=== PATIENT | female | born 1995 | race Caucasian/White ===

== ENCOUNTER 2016-12-03 22:27 | Emergency (ER) | payer OTHER ==
[2016-12-04 00:40] LABS: UA SPECIFIC GRAVITY 1.015 (1.005-1.035); microscopic required? YES; urine erythrocyte 1+ (NEGATIVE)
[2016-12-04 01:52] VITALS: BP 101/50
== END 2016-12-04 01:52 | disposition home or self-care (01) ==
LOC: ED 22:27
PROVIDERS: Emergency Medicine
DX: O23.42 Unspecified infection of urinary tract in pregnancy, second trimester (principal); Z3A.17 17 weeks gestation of pregnancy
CPT/HCPCS: 87804; J0696

== ENCOUNTER 2017-06-14 15:57 | Inpatient (IN) | payer OTHER ==
[~2017-06-14] VITALS: Ht 160 cm; Wt 88.0 kg
[2017-06-14 16:51] LABS: BASOPHIL % 0.4 % (0-2); PLATELET COUNT 289 x10^3mcL (130-400); RED CELL DISTRIBUTION WIDTH 14.5 % (11.5-14.5)
[2017-06-14 17:01] LABS: CARBON DIOXIDE 29.5 mmol/L (21-32); CHLORIDE SERUM 105 mmol/L (98-107); CREATININE SERUM 0.8 mg/dL (0.6-1.0); GFR1 > 60 mL/min; GLUCOSE SERUM 131 mg/dL (74-106); POTASSIUM SERUM 3.5 mmol/L (3.5-5.1); SODIUM SERUM 141 mmol/L (136-145)
[2017-06-14 17:05] LABS: ALBUMIN 3.7 g/dL (3.4-5.0); ALKALINE PHOSPHATASE 202 U/L (46-116); ALT/SGPT 20 U/L (14-59); AMYLASE 59 U/L (25-115); AST/SGOT 28 U/L (15-37); BILIRUBIN TOTAL 0.59 mg/dL (0.20-1.00); LIPASE 215 IU/L (73-393); TOTAL PROTEIN, SERUM 8.4 g/dL (6.4-8.2)
[2017-06-14 19:28] LABS: PHOSPHOROUS 3.9 mg/dL (2.5-4.9)
[2017-06-14 19:33] VITALS: BP 117/72
[2017-06-14 19:37] LABS: T3 TOTAL 1.21 ng/mL
[2017-06-14 19:39] LABS: FREE T4 0.9 ng/dL (0.76-1.46); FREE THYROXINE INDEX 2.9 ug/dL (1.4-4.5); T4(THYROXINE) 9.6 ug/dL (4.7-13.3)
[2017-06-15 05:17] VITALS: BP 123/76
[2017-06-15 07:16] LABS: BASOPHIL % 0.1 % (0-2); PLATELET COUNT 278 x10^3mcL (130-400)
[2017-06-15 07:17] LABS: CALCIUM 8.4 mg/dL (8.5-10.1); CARBON DIOXIDE 27.5 mmol/L (21-32); CHLORIDE SERUM 106 mmol/L (98-107); CHOLESTEROL 172 mg/dL (<200); CREATININE SERUM 0.7 mg/dL (0.6-1.0); GFR1 > 60 mL/min; GLUCOSE SERUM 120 mg/dL (74-106); RED CELL DISTRIBUTION WIDTH 14.8 % (11.5-14.5); SODIUM SERUM 141 mmol/L (136-145); TRIGLYCERIDES 171 mg/dL (<150)
[2017-06-15 07:19] LABS: CHOLESTEROL/HDL RATIO 5.5; HDL CHOLESTEROL 31 mg/dL (40-60)
[2017-06-15 08:20] VITALS: BP 110/70
[2017-06-15 09:15] LABS: microscopic required? NO
[2017-06-15 10:44] LABS: AMPHETAMINE QUAL UR NONE DETECTED (NEG <=1000)
[2017-06-15 11:42] LABS: urine erythrocyte NEGATIVE (NEGATIVE)
[2017-06-15 15:07] VITALS: BP 123/85
[2017-06-15 16:10] VITALS: BP 105/64
[2017-06-15 21:19] VITALS: BP 110/70
[2017-06-16 04:34] VITALS: BP 107/60
[2017-06-16 06:15] LABS: BASOPHIL % 0.4 % (0-2); PLATELET COUNT 258 x10^3mcL (130-400)
[2017-06-16 06:23] LABS: RED CELL DISTRIBUTION WIDTH 14.6 % (11.5-14.5)
[2017-06-16 06:41] LABS: CALCIUM 8.5 mg/dL (8.5-10.1); CARBON DIOXIDE 27.5 mmol/L (21-32); CHLORIDE SERUM 106 mmol/L (98-107); CREATININE SERUM 0.7 mg/dL (0.6-1.0); GFR1 > 60 mL/min; GLUCOSE SERUM 101 mg/dL (74-106); SODIUM SERUM 140 mmol/L (136-145)
[2017-06-16 09:12] VITALS: BP 110/67
[2017-06-16 12:10] VITALS: BP 112/73
[2017-06-16 16:43] VITALS: BP 114/62
[2017-06-16] MEDS ORDERED: ZOF4 PO (16:49)
[2017-06-16] MEDS ORDERED: NORCO1 TA2 PO (16:50)
[2017-06-16 16:53] VITALS: BP 112/73
== END 2017-06-16 17:55 | disposition home or self-care (01) | DRG 263 ==
LOC: ED 15:57 → DU 17:57
PROVIDERS: Emergency Medicine; Surgery; ADMIT Family Medicine
PROC: 0FT44ZZ Resection of Gallbladder, Percutaneous Endoscopic Approach (ICD-10-PCS; principal; 2017-06-15 10:45)
DX: K80.01 Calculus of gallbladder with acute cholecystitis with obstruction (principal); E66.9 Obesity, unspecified; Z68.34 Body mass index [BMI] 34.0-34.9, adult
CPT/HCPCS: 83880; 84439; 94150; J1170; J2270; J2405; J2543; J3010; J3490; J7030; Q0092

== ENCOUNTER 2017-06-23 23:17 | Emergency (ER) | payer OTHER ==
[~2017-06-23 23:17] MED LIST: NORCO1 TA2 PO; ZOF4 PO
[2017-06-24 00:11] VITALS: BP 128/88
== END 2017-06-24 01:20 | disposition left against medical advice (07) ==
LOC: ED 23:17
DX: Z53.21 Procedure and treatment not carried out due to patient leaving prior to being seen by health care provider (principal)

== ENCOUNTER 2017-06-24 05:18 | Inpatient (IN) | payer OTHER ==
[~2017-06-24] VITALS: Ht 160 cm; Wt 84.6 kg
--- NOTE | 2017-06-24 05:30 | NUR ---
PT SITTING UP IN BED WITH C/O UPPER ABD PAIN SINCE LAST NIGHT AFTER EATING DINNER. PT WITH RECENT HX OF GALLBLADDER SX AT [place] WITH A READMISSION TO [facility] FOR PAIN. PT STATED SHE WAS HAS HAD A BM AND WAS ABLE TO EAT LIQUIDS INITIALLY BUT WHEN SHE ATE TONIGHT, HER PAIN RETURNED. PT DESCRIBES PAIN 10/10 ACCROSS THE TOP OF HER UPPER ABD. VISITOR AT BEDSIDE.
[2017-06-24 07:00] LABS: BASOPHIL % 0.2 % (0-2); PLATELET COUNT 320 x10^3mcL (130-400)
[2017-06-24 07:01] LABS: ALBUMIN 3.4 g/dL (3.4-5.0); ALT/SGPT 465 U/L (14-59); AST/SGOT 197 U/L (15-37); BILIRUBIN TOTAL 1.3 mg/dL (0.20-1.00); CARBON DIOXIDE 30.1 mmol/L (21-32); CHLORIDE SERUM 100 mmol/L (98-107); CREATININE SERUM 0.6 mg/dL (0.6-1.0); GFR1 > 60 mL/min; GLUCOSE SERUM 99 mg/dL (74-106); POTASSIUM SERUM 3.7 mmol/L (3.5-5.1); SODIUM SERUM 140 mmol/L (136-145); TOTAL PROTEIN, SERUM 7.9 g/dL (6.4-8.2)
[2017-06-24 07:04] LABS: RED CELL DISTRIBUTION WIDTH 16.4 % (11.5-14.5)
--- NOTE | 2017-06-24 07:17 | NUR ---
PT LEFT FOR XRAY VIA W/C
--- NOTE | 2017-06-24 07:18 | NUR ---
RECEIVED REPORT FROM DEBBIE ACCOUNT ASSOCIATE RN
[2017-06-24 07:56] LABS: CALCIUM 9.3 mg/dL (8.5-10.1)
[2017-06-24 08:04] LABS: ALKALINE PHOSPHATASE 1464 U/L (46-116)
[2017-06-24 08:06] LABS: LIPASE 11012 IU/L (73-393)
--- NOTE | 2017-06-24 08:13 | NUR ---
REPORT GIVEN TO LEATHA
--- NOTE | 2017-06-24 08:14 | NUR ---
PT WAS NOT ABLE TO PRODUCE URINE WHILE IN THE ED
[2017-06-24 08:36] LABS: MAGNESIUM 2.1 mg/dL (1.8-2.4); PHOSPHOROUS 5.2 mg/dL (2.5-4.9)
--- NOTE | 2017-06-24 08:45 | NUR ---
[facility] A[facility]KE,ALERT AND ORIENTED. PUT ON TEL. #10 MONITOR SHOWS NSR. DENIES CHEST PAIN.DENIES ABD. PAIN AT THIS TIME. ORIENTED TO ROOM AND SURROUNDINGS. CALL LIGHT W./ IN REACH.ROUTINE ADMISSIO CARE RENDERED. NO ACUTE RESP. DISTRESS NOTED.IV FLUIDS INFUSING WELL TO LEFT AC.NOTED. OLD ABD. INCISSIONL AREA W/ 6 [facility] CDI SUSAN S/P GALBLADER SX 0CT.2016 PER PT. STATED.AND C/S . AWARE OF PT. ADMISSION SCD APPLIED TO LOWER EXT.REBECCA. MADE PT. COMFORTABLE IN BED.
[2017-06-24 10:01] VITALS: BP 112/65
[2017-06-24 13:50] VITALS: BP 98/58
--- NOTE | 2017-06-24 14:00 | NUR ---
PT. AMBULATED IN THE BTHROOM AND VOIDING WELL,DENIES ANY ABD. PAIN AT THIS TIME NO N/V NOTED.CONT. IV FLUIDS AND IV ANTIBIOTIC ORDERED.
[2017-06-24 16:55] VITALS: BP 103/62
--- NOTE | 2017-06-24 17:30 | NUR ---
DR. Genny NGUYEN HERE AND SEEN THE PT. AND EXPLAINED THE ERCP PROCEDURE TO PT. AND PT. ERBALIZED UNDERSTANDING OF THE PROCEDURE AND SIGNED THE CONSENT. DR. Genny NGUYEN WILL SCHEDULE WHAT TIME FOR THE ERCP TOMMOROW.PT. MADE AWARE.
--- NOTE | 2017-06-24 18:01 | NUR ---
PT. DENIES ABD. PAIN SINCE ADMISSION ,NO ACUTE DISTRESS NOTED. CALL LIGHT W./ IN REACH.
--- NOTE | 2017-06-24 19:43 | NUR ---
REC'D REPORT FROM DAY NURSE LEATHA. AAOX4. ABLE TO MAKE NEEDS KNOWN. C/O OF ABD PAIN AT THIS TIME 03/31. WILL MEDICATE PER EMAR. PULSES ARE STRONG AND PALPABLE. TELE# 10 NSR. LUNG SOUNDS ARE CTA. ON RA. NO SOB. BREATHING EVEN AND UNLABORED. ABD IS SOFT AND ROUND. IV ACCESS TO THE LAC INTACT AND PATENT INFUSING WELL. BED IN LOWEST POSITION. CALL LIGHT WITHIN REACH. WILL PROCEED TO THE PLAN OF CARE.
[2017-06-24 21:12] VITALS: BP 103/66
--- NOTE | 2017-06-25 01:12 | NUR ---
ROUNDS MADE, PT IS SLEEPING WITH EYES CLOSED. NO DISTRESS NOTED AT THIS TIME. WILL CONT TO MONITOR.
--- NOTE | 2017-06-25 04:13 | NUR ---
ROUNDS MADE, PT IS ASLEEP AND RESTING WELL. NO DISTRESS NOTED. WILL CONT TO MONITOR.
[2017-06-25 04:43] LABS: microscopic required? NO
[2017-06-25 04:53] LABS: urine erythrocyte NEGATIVE (NEGATIVE)
[2017-06-25 04:59] LABS: AMPHETAMINE QUAL UR NONE DETECTED (NEG <=1000)
[2017-06-25 05:47] VITALS: BP 109/65
[2017-06-25 06:12] LABS: BASOPHIL % 0.4 % (0-2); PLATELET COUNT 263 x10^3mcL (130-400)
[2017-06-25 06:20] LABS: CALCIUM 8.7 mg/dL (8.5-10.1); CARBON DIOXIDE 28.9 mmol/L (21-32); CHLORIDE SERUM 104 mmol/L (98-107); CREATININE SERUM 0.7 mg/dL (0.6-1.0); GFR1 > 60 mL/min; GLUCOSE SERUM 88 mg/dL (74-106); POTASSIUM SERUM 3.9 mmol/L (3.5-5.1); SODIUM SERUM 139 mmol/L (136-145)
--- NOTE | 2017-06-25 06:27 | NUR ---
PT SLEPT THROUGHOUT THE SHIFT. NO SIGNIFICANT CHANGES OR RESP DISTRESS NOTED. ALL NEEDS MET AND ATTENDED TO. IV PATENT AND INTACT INFUSING WELL. WILL ENDORSE ALL CARE TO ONCOMING NURSE.
[2017-06-25 06:28] LABS: RED CELL DISTRIBUTION WIDTH 16.3 % (11.5-14.5)
--- NOTE | 2017-06-25 07:45 | NUR ---
AWAKE,ALERT AND ORIENTED. DENIES ANY PAIN AT THIS TIME. CALL LIGHT W/ IN REACH.NPO FOR ERCP THIS MORNING ,CONT. IV FLUIDS A SORDERED.AMBULATED IN THE BATHROOM AND VOIDING WELL. NO ACUTE DISTRESS NOTED. WILL CONT. PLAN OF CARE.
--- NOTE | 2017-06-25 08:00 | NUR ---
SKIN PREP .GIVEN FOR ERCP PROCEDURE ,AM CARE DONE.PT. WENT DOWN TO OR FOR ERCP PROCEDURE VIA [facility].
--- NOTE | 2017-06-25 10:00 | NUR ---
PT. BACK FROM RECOVERY ROOM S/P ERCP VIA [facility] AWAKE,ALERT AND AND ORIENTED. DENIES ANY PAIN AT THIS TIME,CALL LIGHT W/ IN REACH.MADE PT. COMFORTABLE IN BED.
--- NOTE | 2017-06-25 11:19 | NUR ---
PT. C/O ABD. PAIN MEDICATED W/ NORCO ORDERED FOR PAIN.
--- NOTE | 2017-06-25 13:00 | NUR ---
PT. AMBULATED IN THE BATHROOM AND VOIDING WELL. DENIES ANY PAIN AT THIS TIME.PASSING FLATUS .
[2017-06-25 13:22] VITALS: BP 102/62
--- NOTE | 2017-06-25 16:00 | NUR ---
ENCOURAGE PT. OOB TO CHAIR,DAT. WELL AMBULATED IN THE BATHROOM AND VOIDING WELL.DENIES ANY PAIN AT THIS TIME.
--- NOTE | 2017-06-25 17:00 | NUR ---
PT. C/O ABD. PAIN MEDICATED FOR PAIN ORDERED. MADE COMFORTABLE IN BED.CALL LIGHT W/ IN REACH.
[2017-06-25 17:32] VITALS: BP 112/66
--- NOTE | 2017-06-25 19:18 | NUR ---
REC'D REPORT FROM DAY NURSE LEATHA. AAOX4. LAYING IN BED COMFORTABLY. DENIES PAIN AT THIS TIME. NO DISTRESS NOTED. TELE# 10 NSR. LUNG SOUNDS ARE CTA. ON RA. NO SOB. BREATHING EVEN AND UNLABORED. ABD IS ROUND AND ACTIVE. NO EDEMA NOTED. IV ACCESS TO THE LAC PATENT AND INTACT INFUSING WELL. WILL PROCEED TO THE PLAN OF CARE.
--- NOTE | 2017-06-25 19:45 | NUR ---
PT IS STILL FEELING NAUSEOUS. DR BEARD MADE AWARE.
[2017-06-25 21:07] VITALS: BP 109/70
--- NOTE | 2017-06-25 23:24 | NUR ---
PT IS STILL C/O OF PAIN. NORCO AND TORADOL WAS INEFFECTIVE. DR BEARD MADE AWARE.
--- NOTE | 2017-06-25 23:58 | NUR ---
PLACE A K PAD ON PT ABD. PT STILL C/O OF NAUSEA. WILL BE GIVING ZOFRAN.
--- NOTE | 2017-06-26 01:30 | NUR ---
ROUNDS MADE, PT IS NOW RESTING AND SLEEPING WELL. DENIES PAIN AT THIS TIME. NO DISTRESS NOTED. WILL CONT TO MONITOR.
--- NOTE | 2017-06-26 04:17 | NUR ---
ROUNDS MADE, PT IS SLEEPING AND RESTING WELL. NO DISTRESS NOTED. WILL CONT TO MONITOR.
[2017-06-26 04:34] VITALS: BP 115/76
--- NOTE | 2017-06-26 06:25 | NUR ---
SLEPT PERIODICALLY SLEPT THROUGHOUT THE SHIFT. DENIES PAIN AT THIS TIME. NO SIGNIFICANT CHANGES NOTED. NO ACUTE DISTRESS. ALL NEEDS MET AND ATTENDED TO. K-PAD IN PLACE. BREATHING EVEN AND UNLABORED. IV ACCESS PATENT AND INTACT INFUSING WELL. WILL ENDORSE ALL CARE TO ONCOMING NURSE.
[2017-06-26 07:06] LABS: BILIRUBIN DIRECT 0.45 mg/dL (0.0-0.2); BILIRUBIN TOTAL 0.81 mg/dL (0.20-1.00); TOTAL PROTEIN, SERUM 7.2 g/dL (6.4-8.2)
[2017-06-26 07:12] LABS: ALBUMIN 3.1 g/dL (3.4-5.0)
[2017-06-26 07:17] LABS: BASOPHIL % 0.3 % (0-2); PLATELET COUNT 275 x10^3mcL (130-400)
[2017-06-26 07:21] LABS: RED CELL DISTRIBUTION WIDTH 15.9 % (11.5-14.5)
[2017-06-26] MEDS ORDERED: COL100 PO (07:24)
[2017-06-26] MEDS ORDERED: NORCO1 TA2 PO (07:24)
--- NOTE | 2017-06-26 07:45 | NUR ---
AWAKE,ALERT AND ORIENTED DENIES ANY PAIN AT THIS TIME,ENCOURAGE PT.TO OOB AMBULATION,S/P ERCP W/ STENT PLACEMENT IN COMMON BILE DUCT,CONT. IV FLUIDS ORDERED.NO ACUTE DISTRESS NOTED. AMBULATED IN THE BATHROOM AND VOIDING WELL. [place]. PLAN OF CARE.
[2017-06-26 08:00] VITALS: BP 121/78
--- NOTE | 2017-06-26 09:00 | NUR ---
DR. MAST HERE W/ OTHER MEDICAL STAFF MADE ROUNDS AND UPDTATED PT. PLAN OF CARE.AND NOTIFIED REGARDING ELEVATED WBC 14.[address] YA AND MADE AWARE.
[2017-06-26 12:52] VITALS: BP 105/61
[2017-06-26 17:00] VITALS: BP 102/70
--- NOTE | 2017-06-26 18:00 | NUR ---
DENIES ANY PAIN THE WHOLE DAY AMBULATED IN [address] X 3 TODAY DAT. WELL. PT. C/O CONSTIPATION NOTIFIED W/ ORDERS .
--- NOTE | 2017-06-26 19:42 | NUR ---
REC'D PT FROM DAY NURSE RN ELATHA. AAOX4. ABLE TO MAKE NEEDS KNOWN. LAYING IN BED COMFORTABLY. DENIES PAIN AT THIS TIME. NO DISTRESS NOTED. TELE#10. LUNG SOUNDS ARE CTA. ON RA, NO SOB. BREATHING EVEN AND UNLABORED. ABD IS ROUND. NO EDEMA NOTED. IV ACCESS PATENT AND INTACT INFUSING WELL. WILL PROCEED TO THE PLAN OF CARE.
--- NOTE | 2017-06-26 19:42 | NUR ---
REC'D PT FROM DAY NURSE RN LEATHA. AAOX4. ABLE TO MAKE NEEDS KNOWN. LAYING IN BED COMFORTABLY. DENIES PAIN AT THIS TIME. NO DISTRESS NOTED. TELE#10. LUNG SOUNDS ARE CTA. ON RA. NO SOB. BREATHING EVEN AND UNLABORED. ABD IS ROUND. NO EDEMA NOTED. IV ACCESS PATENT AND INTACT INFUSING WELL. WILL ENDORSE ALL CARE TO ONCOMING NURSE.
[2017-06-26 21:47] VITALS: BP 111/73
--- NOTE | 2017-06-27 01:33 | NUR ---
ROUNDS MADE, PT IS SLEEPING WITH EYES CLOSED. NO DISTRESS NOTED. WILL CONT TO MONITOR.
--- NOTE | 2017-06-27 03:06 | NUR ---
ROUNDS MADE, PT IS ASLEEP AND RESTING WELL. NO DISTRESS NOTED. WILL CONT TO MONITOR.
[2017-06-27 05:40] VITALS: BP 103/65
--- NOTE | 2017-06-27 06:31 | NUR ---
PT SLEPT THROUGHOUT THE SHIFT. DENIED PAIN AT NIGHT. NO DISTRESS NOTED. ALL NEEDS MET AND ATTENDED TO. PT HAD MULTIPLE BM'S. PT STATES FEELING MUCH BETTER. IV ACCESS INTACT AND PATENT. WILL ENDORSE ALL CARE TO ONCOMING NURSE.
[2017-06-27 07:21] LABS: BASOPHIL % 0.4 % (0-2); PLATELET COUNT 255 x10^3mcL (130-400)
[2017-06-27 07:23] LABS: RED CELL DISTRIBUTION WIDTH 16.3 % (11.5-14.5)
--- NOTE | 2017-06-27 07:25 | NUR ---
PATIENT RECEIVED AND SEEN. PT IS AAOX4. TELE [address] SH[address] SR[address] SCDS IN PLACE. LUNG SOUNDS CTA. RESPIRATIONS EVEN AND UNLABORED ON ROOM AIR. PT STATES THAT SHE HAD BOWEL MOVEMENTS THIS MORNING. PT HAS ABDOMINAL INCISION PRESENT, SUSAN. NO BLEEDING OR SIGNS OF INFECTION. DENIES PAIN AT THIS TIME. NS INFUSING IN LAC AT 70CC/HR. PATIENT IS CALM AT THIS TIME. CALL LIGHT WITHIN REACH. ALL SAFETY MEASURES IN PLACE. WILL CONTINUE TO MONITOR.
[2017-06-27 08:00] VITALS: BP 104/60
--- NOTE | 2017-06-27 08:20 | NUR ---
DR RAMIREZ AND THE MEDICAL TEAM VISITED THE PATIENT THIS MORNING. ALL QUESTIONS ANSWERED. PATIENT AGREEABLE TO PLAN OF CARE.
[2017-06-27] MEDS ORDERED: ONDANSETRON4 M2 (10:35)
[2017-06-27 11:07] VITALS: BP 104/60
--- NOTE | 2017-06-27 12:15 | NUR ---
DISCHARGE TEACHING PERFORMED. ALL QUESTIONS ANSWERED AT THIS TIME. PATIENT RECEIVED DISCHARGE PACKET AND PRESCRIPTION FOR PAIN MEDICATION. PATIENT VERBALIZED UNDERSTANDING. IV WAS REMOVED FROM PATIENT AT THIS TIME, CATHETER TIP REMOVED INTACT. PRESSURE APPLIED OVER IV SITE FOR 1 MINUTE AND SITE COVERED WITH BANDAID. NO BLEEDING NOTED. TELE MONITOR WAS RETURNED. WILL CONTINUE TO MONITOR PATIENT.
--- NOTE | 2017-06-27 12:29 | NUR ---
PATIENT HAS BEEN DISCHARGED. PATIENT LEFT WITH FAMILY. ALL PATIENT BELONGINGS REMOVED FROM ROOM. PATIENT AND FAMILY HAS BEEN ESCORTED SAFELY OFF HOSPITAL PREMISES BY HOSPITAL STAFF MEMBER.
== END 2017-06-27 12:45 | disposition home or self-care (01) ==
LOC: ED 05:18 → DU 07:45
PROVIDERS: Emergency Medicine; Internal Medicine Gastroenterology; Student in an Organized Health Care Education/Training Program; ADMIT Family Medicine Sports Medicine
PROC: 0F798DZ Dilation of Common Bile Duct with Intraluminal Device, Via Natural or Artificial Opening Endoscopic (ICD-10-PCS; principal; 2017-06-25 08:00)
PROC: BF131ZZ Fluoroscopy of Gallbladder and Bile Ducts using Low Osmolar Contrast (ICD-10-PCS; 2017-06-25 08:00)
PROC: 0DB64ZX Excision of Stomach, Percutaneous Endoscopic Approach, Diagnostic (ICD-10-PCS; 2017-06-25 08:00)
DX: K80.50 Calculus of bile duct without cholangitis or cholecystitis without obstruction (principal); K85.90 Acute pancreatitis without necrosis or infection, unspecified; E44.0 Moderate protein-calorie malnutrition; E83.39 Other disorders of phosphorus metabolism; G89.18 Other acute postprocedural pain; E78.5 Hyperlipidemia, unspecified; Z68.34 Body mass index [BMI] 34.0-34.9, adult; D64.9 Anemia, unspecified; Z68.33 Body mass index [BMI] 33.0-33.9, adult
CPT/HCPCS: 43262; C1769; C2625; J0696; J1885; J2250; J2405; J2543; J2704; J3010; J7030; J7120; Q0092; Q9967

== ENCOUNTER → 2017-10-07 | Day surgery (SDC) | payer OTHER ==
[2017-10-06 17:09] LABS: CARBON DIOXIDE 29.7 mmol/L (21-32); CHLORIDE SERUM 105 mmol/L (98-107); CREATININE SERUM 0.6 mg/dL (0.6-1.0); GFR1 > 60 mL/min; GLUCOSE SERUM 95 mg/dL (74-106); POTASSIUM SERUM 3.6 mmol/L (3.5-5.1); SODIUM SERUM 143 mmol/L (136-145)
[2017-10-06 17:10] LABS: BASOPHIL % 0.4 % (0-2); PLATELET COUNT 262 x10^3mcL (130-400)
[~2017-10-07] VITALS: Ht 160 cm; Wt 92.1 kg
[~2017-10-07] MED LIST changes: +COL100 PO; +ONDANSETRON4 M2
[2017-10-07 07:00] VITALS: BP 132/78
[2017-10-07 07:39] VITALS: BP 122/73
== END | disposition home or self-care (01) ==
LOC: DS 06:41 → OR 07:30 → DS 07:30
PROVIDERS: Internal Medicine Gastroenterology
DX: Z45.89 Encounter for adjustment and management of other implanted devices (principal); Z53.8 Procedure and treatment not carried out for other reasons
CPT/HCPCS: J1610; J2175; J2250; Q0092; Q9967

== ENCOUNTER 2017-11-11 15:51 | Emergency (ER) | payer OTHER | END 2017-11-11 16:40 | disposition left against medical advice (07) | LOC: ED 15:51 | DX: Z53.21 Procedure and treatment not carried out due to patient leaving prior to being seen by health care provider (principal) ==